=== PATIENT | female | born 1945 | race African-American/Black ===

== ENCOUNTER 2018-11-16 04:07 | Emergency (ER) | payer BC ==
[~2018-11-16] VITALS: Ht 157.5 cm; Wt 65.8 kg
[2018-11-16 04:15] VITALS: BP 122/66
--- NOTE | 2018-11-16 04:15 | NUR ---
ED Nurse Note: Pt arrived ED from home, c/o left chest pain today, 02/18. Pt is A/OX 4. Vital signs stable at this time, waitng for orders.
--- NOTE | 2018-11-16 04:42 | NUR ---
ED Nurse Note: Blood sample collected and sent to Lab.
--- NOTE | 2018-11-16 04:43 | NUR ---
ED Nurse Note: Pt was sent down for CT.
[2018-11-16 04:50] LABS: BASOPHILS % (AUTO) 0.9 % (0.0-2.0); EOSINOPHILS % (AUTO) 1.6 % (0.0-3.0); HEMOGLOBIN 12.1 G/DL (12.0-16.0); LYMPHOCYTES % (AUTO) 24.3 % (20.0-45.0); MEAN CORPUSCULAR VOLUME 83 FL (80-99); MONOCYTES % (AUTO) 7.1 % (1.0-10.0); PLATELET COUNT 316 K/UL (150-450); RED BLOOD COUNT 4.23 M/UL (4.20-5.40); RED CELL DISTRIBUTION WIDTH 11.7 % (11.6-14.8); WHITE BLOOD COUNT 8.3 K/UL (4.8-10.8)
[2018-11-16 04:58] LABS: ANION GAP 10 mmol/L (5-15); BLOOD UREA NITROGEN 21 mg/dL (7-18); CALCIUM 9.6 MG/DL (8.5-10.1); CARBON DIOXIDE 27 MMOL/L (21-32); CHLORIDE 104 MMOL/L (98-107); POTASSIUM 3.8 MMOL/L (3.5-5.1); SODIUM 141 MMOL/L (136-145)
[2018-11-16] MEDS ORDERED: Ketorolac 30mg Inj IV ONE (05:15)
--- NOTE | 2018-11-16 05:34 | Emergency Room Report ---
History of Present Illness General Chief Complaint: Pain Source: Patient Present Illness HPI Is a 72-year-old female with a history hypertension. She presents with chief complaint of left shoulder and left arm pain. Onset about 10 hours now. She also had some headache. Denies any fever chills. Denies any chest pain. No exertional component. No radiation. No relief with [id number] medication. Not worse with movement of her arm. She says she is under a lot of stress and worried that this may be causing the problem. Allergies: Coded Allergies: No Known Allergies (Unverified , 10/24/15) Patient History Past Medical History: see triage record, old chart reviewed, DM, HTN Past Surgical History: other Pertinent Family History: none Social History: Denies: smoking Now: No Immunizations: other Reviewed Nursing Documentation: PMH: Agreed; PSxH: Agreed Nursing Documentation-PMH Hx Hypertension: Yes Review of Systems Eye: Denies: eye pain, blurred vision ENT: Denies: ear pain, nose congestion, throat swelling Respiratory: Denies: cough, shortness of breath Cardiovascular: Denies: chest pain, palpitations Gastrointestinal: Denies: abdominal pain, diarrhea, nausea, vomiting Musculoskeletal: Reports: muscle pain; Denies: back pain, joint pain Skin: Denies: rash Neurological: Denies: headache, numbness Endocrine: Denies: increased thirst, increased urine Hematologic/Lymphatic: Denies: easy bruising All Other Systems: negative except mentioned in HPI Physical Exam Vital Signs Date Time Temp Pulse Resp B/P (MAP) Pulse Ox O2 Delivery O2 Flow Rate FiO2 11/16/18 04:09 98.1 74 16 125/74 97 Room Air vitals normal Sp02 EP Interpretation: reviewed, normal General Appearance: well appearing, no apparent distress, alert Head: normocephalic, atraumatic Eyes: bilateral eye PERRL, bilateral eye EOMI ENT: hearing grossly normal, normal pharynx Neck: full range of motion, supple, no meningismus Respiratory: chest non-tender, lungs clear, normal breath sounds Cardiovascular #1: regular rate, rhythm, no murmur Gastrointestinal: normal bowel sounds, non tender, no mass, no organomegaly, no bruit, non-distended Musculoskeletal: back normal, gait/station normal, normal range of motion Neurologic: alert, oriented x3 Psychiatric: mood/affect normal Skin: warm/dry Medical Decision Making Diagnostic Impression: Primary Impression: Arm pain, left ER Course Patient presents with left arm pain. No evidence of ACS, PE, dissection. Exam is not consistent with anginal equivalent pain. No evidence of TIA or CVA. Troponin and EKG are normal. Patient felt better now. We'll discharge home. Lab Results Impression labs normal EKG Diagnostic Results Rate: normal Rhythm: NSR ST Segments: no acute changes Rhythm Strip Diag. Results EP Interpretation: yes Rate: 65 Rhythm: NSR, no PVC's, no ectopy Chest X-Ray Diagnostic Results Chest X-Ray Diagnostic Results : Chest X-Ray Ordered: Yes # of Views/Limited/Complete: 1 View Indication: Chest Pain EP Interpretation: Yes Interpretation: no consolidation, no effusion, no pneumothorax, no acute cardiopulmonary disease Impression: No acute disease Electronically Signed by: Hayden Burnham MD Last Vital Signs Date Time Temp Pulse Resp B/P (MAP) Pulse Ox O2 Delivery O2 Flow Rate FiO2 11/16/18 04:15 98.1 65 16 122/66 97 Room Air Status: improved Disposition: HOME, SELF-CARE Condition: Stable Referrals: [facility],REFERRING (PCP) Additional Instructions: Follow-up with your doctor in 7 days or return if symptom worsen. Hayden Burnham MD Nov 16, 2018 05:34
[2018-11-16 05:42] VITALS: BP 123/64
--- NOTE | 2018-11-16 05:42 | NUR ---
ER DISCHARGE NOTE: Patient is cleared to be discharged per Dr. Burnham. CT of head done, EKG done. Pt is A/O x4 on room air with stable vital signs. Pt was given dc instructions and verbalize understanding. Pt ID band and iv site removed without complications. Pt is able to ambulate with steady gait, and took all belongings.
--- NOTE | 2018-11-16 09:52 | Diagnostic Imaging Report ---
Indications: Dizziness, altered mental status Technique: Spiral acquisitions obtained through the brain. Angled axial and coronal 5 x 5 mm slices were reconstructed. Total dose length product 1386.64 mGycm. CTDI vol(s) 70.38 mGy. Dose reduction achieved using automated exposure control Comparison: None. Findings: There is mild age-related enlargement of the ventricles and extra axial CSF spaces. No acute intrarenal hemorrhage or edema, mass effect, nor midline shift. Normal lauren-white differentiation. Intact calvarium. However, ill-defined osteosclerotic foci are seen in the left frontal and parietal calvarium Visualized orbits and sinuses are unremarkable. The mastoids are clear Impression: Mild age-related volume loss Negative for acute intrarenal bleed or mass effect Sclerotic left calvarial lesions. This raises possibility of metastatic or other process. Correlate with clinical history, recommend further evaluation with bone scan to assess metabolic activity if clinically indicated This agrees with the preliminary interpretation provided overnight by [facility]. The CT scanner at [facility] is accredited by the [employer] and the scans are performed using protocols designed to limit radiation exposure to as low as reasonably achievable to attain images of sufficient resolution adequate for diagnostic evaluation.
--- NOTE | 2018-11-16 13:11 | Cardiology Report ---
APPROVED REPORT EKG Measurement Heart [id number] Normal sinus rhythm Normal ECG
== END 2018-11-16 05:42 | disposition home or self-care (01) ==
LOC: EMR 04:46
DX: M79.602 Pain in left arm (principal); I10 Essential (primary) hypertension; E11.9 Type 2 diabetes mellitus without complications
CPT/HCPCS: 36415; 70450; 80048; 84484; 85025; 93005; 96374; 99284; J1885

== ENCOUNTER 2019-12-18 10:27 | Emergency (ER) | payer MEDICARE ==
[~2019-12-18] VITALS: Ht 157.5 cm; Wt 72.6 kg
--- NOTE | 2019-12-18 10:45 | NUR ---
ED Nurse Note: patient walked into ED from home c/o upper back pain and nausea since this morning. patient denies any vomiting or chest apin. patient was advised to come to ED for her symptoms. upon arrival to ED, patient denies any pain.
[2019-12-18 11:05] VITALS: BP 115/54
--- NOTE | 2019-12-18 11:50 | Emergency Room Report ---
History of Present Illness General Chief Complaint: Back Pain-No Injury Source: Patient Present Illness HPI Disclaimer: Please note that this report is being documented using DRAGON technology. This can lead to erroneous entry secondary to incorrect interpretation by the dictating instrument. HPI: 74-year-old female presented for upper back pain. Patient states she woke up with upper back pain this morning. About 6 out of 10. Aching in nature worse with movement. Pain has since resolved. She called her doctor's office this morning who was not in the clinic so she called her insurance hotline and the nurse on insurance hotline recommended ER evaluation. She states she was mildly nauseous but that has since resolved as well. No vomiting. No shortness of breath. No fever no coughing. She has a history of hypertension and high cholesterol. PMH: Hypertension and high cholesterol PSH: Reviewed Social Hx: Denies smoking drinking or illicit drug use Allergies: Coded Allergies: No Known Allergies (Unverified , 10/24/15) COVID-19 Screening Contact w/high risk pt: No Recent Travel to affected area: No Experienced COVID-19 symptoms?: No Nursing Documentation-PMH Past Medical History: No History, Except For Hx Hypertension: Yes Review of Systems All Other Systems: negative except mentioned in HPI Physical Exam Vital Signs Date Time Temp Pulse Resp B/P (MAP) Pulse Ox O2 Delivery O2 Flow Rate FiO2 12/18/19 10:38 98.1 53 20 114/71 (85) 95 Room Air Sp02 EP Interpretation: reviewed, normal General Appearance: well appearing, no apparent distress Head: normocephalic, atraumatic Eyes: bilateral eye PERRL, bilateral eye EOMI ENT: hearing grossly normal, moist mucus membranes Neck: full range of motion, supple Respiratory: lungs clear, normal breath sounds, no rhonchi, no respiratory distress, no retraction, no wheezing Cardiovascular #1: normal peripheral pulses, regular rate, rhythm, no murmur Gastrointestinal: non tender, soft, non-distended, no guarding Musculoskeletal: other - Upper back mildly tender to palpation bilaterally with no midline tenderness. Full range of motion of all extremities. Neurologic: alert, oriented x3, no focal defects Skin: normal color, warm/dry Medical Decision Making ER Course MDM: Patient presented with complaint of upper back pain. She Woke up with the pain this morning. She differential diagnosis: Clinical course Patient placed on stretcher. On monitoring tech. After initial history and physical I ordered labs, chest x-ray and CT Kristen of the chest. I ordered CT angios due to concern for possible dissection as patient's aorta appeared ectatic on chest x-ray. Labs - Laboratory Tests Test 12/18/19 11:40 White Blood Count 6.9 K/UL (4.8-10.8) Red Blood Count 4.69 M/UL (4.20-5.40) Hemoglobin 13.5 G/DL (12.0-16.0) Hematocrit 39.0 % (37.0-47.0) Mean Corpuscular Volume 83 FL (80-99) Mean Corpuscular Hemoglobin 28.8 PG (27.0-31.0) Mean Corpuscular Hemoglobin Concent 34.6 G/DL (32.0-36.0) Red Cell Distribution Width 10.7 % (11.6-14.8) L Platelet Count 322 K/UL (150-450) Mean Platelet Volume 5.7 FL (6.5-10.1) L Neutrophils (%) (Auto) 72.0 % (45.0-75.0) Lymphocytes (%) (Auto) 20.6 % (20.0-45.0) Monocytes (%) (Auto) 5.7 % (1.0-10.0) Eosinophils (%) (Auto) 1.0 % (0.0-3.0) Basophils (%) (Auto) 0.7 % (0.0-2.0) Sodium Level 139 MMOL/L (136-145) Potassium Level 4.0 MMOL/L (3.5-5.1) Chloride Level 101 MMOL/L (98-107) Carbon Dioxide Level 31 MMOL/L (21-32) Anion Gap 7 mmol/L (5-15) Blood Urea Nitrogen 16 mg/dL (7-18) Creatinine 0.9 MG/DL (0.55-1.30) Estimated Glomerular Filtration Rate > 60 mL/min (>60) Glucose Level 110 MG/DL (74-106) H Calcium Level 10.1 MG/DL (8.5-10.1) Total Bilirubin 0.7 MG/DL (0.2-1.0) Aspartate Amino Transferase (AST) 18 U/L (15-37) Alanine Aminotransferase (ALT) 18 U/L (12-78) Alkaline Phosphatase 131 U/L (46-116) H Troponin I 0.000 ng/mL (0.000-0.056) Total Protein 8.1 G/DL (6.4-8.2) Albumin 3.9 G/DL (3.4-5.0) Globulin 4.2 g/dL Albumin/Globulin Ratio 0.9 (1.0-2.7) L On reevaluation: Patient remained in no acute distress and nontoxic-appearing, pain-free Diagnosis -upper back pain resolved Stable and discharged to home Followup with PMD. Return to ED if symptoms recur or worsen differential diagnosis included but not limited to EKG Diagnostic Results Rate: bradycardiac Rhythm: NSR ST Segments: no acute changes Other Impression Sinus bradycardia, rate of 51 Last Vital Signs Date Time Temp Pulse Resp B/P (MAP) Pulse Ox O2 Delivery O2 Flow Rate FiO2 12/18/19 11:05 98.1 51 14 115/54 100 Room Air Status: improved Disposition: HOME, SELF-CARE Condition: Stable Referrals: [facility],REFERRING (PCP) Marty Hay M.D. Dec 18, 2019 11:50
[2019-12-18 12:06] LABS: ANION GAP 7 mmol/L (5-15); BLOOD UREA NITROGEN 16 mg/dL (7-18); CALCIUM 10.1 MG/DL (8.5-10.1); CARBON DIOXIDE 31 MMOL/L (21-32); CHLORIDE 101 MMOL/L (98-107); CREATININE 0.9 MG/DL (0.55-1.30); SODIUM 139 MMOL/L (136-145)
[2019-12-18 12:11] LABS: ALANINE AMINOTRANSFERASE 18 U/L (12-78); ALBUMIN 3.9 G/DL (3.4-5.0); ALBUMIN/GLOBULIN RATIO 0.9 (1.0-2.7); ALKALINE PHOSPHATASE 131 U/L (46-116); ASPARTATE AMINO TRANSFERASE 18 U/L (15-37); BILIRUBIN,TOTAL 0.7 MG/DL (0.2-1.0)
--- NOTE | 2019-12-18 12:13 | Diagnostic Imaging Report ---
Indication: Chest pain Technique: One view of the chest Comparison: none Findings: Inspiration is suboptimal. The lungs and pleural spaces are clear. The heart size is normal. The aorta is ectatic Impression: No acute process
[2019-12-18 12:16] LABS: BASOPHILS % (AUTO) 0.7 % (0.0-2.0); HEMOGLOBIN 13.5 G/DL (12.0-16.0); LYMPHOCYTES % (AUTO) 20.6 % (20.0-45.0); MEAN CORPUSCULAR VOLUME 83 FL (80-99); MONOCYTES % (AUTO) 5.7 % (1.0-10.0); PLATELET COUNT 322 K/UL (150-450); RED BLOOD COUNT 4.69 M/UL (4.20-5.40); RED CELL DISTRIBUTION WIDTH 10.7 % (11.6-14.8); WHITE BLOOD COUNT 6.9 K/UL (4.8-10.8)
[2019-12-18] MEDS ORDERED: Omnipaque 350 100ml vial INJ PRN (12:45)
--- NOTE | 2019-12-18 14:30 | NUR ---
ED Nurse Note: patient came back from CT chest in stable condition
[2019-12-18 14:51] VITALS: BP 131/65
--- NOTE | 2019-12-18 15:03 | Diagnostic Imaging Report ---
ndication: Chest pain and upper back pain Technique: IV administration nonionic contrast. Spiral acquisitions obtained from the lung bases to the lung apices. Multiplanar and 3-D reconstructions were generated. Total dose length product 211 mGycm. CTDIvol(s) one, 44, 6 mGy. Dose reduction achieved using automated exposure control Comparison: none Findings: There is no evidence of thoracic aortic aneurysm or dissection. The thoracic aorta is well-opacified. There is normal branching anatomy of the great neck vessels. The pulmonary arteries are well-opacified. No intraluminal filling defects or other findings to suggest acute pulmonary embolus are evident. No pulmonary arterial dilatation or isolated right ventricular dilatation is demonstrated. The lungs demonstrate some posterior dependent atelectatic changes. They're otherwise clear. The heart size is normal. No pericardial effusion. No mediastinal or hilar mass or adenopathy. The included portion of the thyroid is unremarkable. No axillary or chest wall mass or adenopathy demonstrated. There are degenerative changes of the thoracic spine Included upper abdominal anatomy demonstrates a few subcentimeter low-attenuation lesions in the dome of the liver. There are colonic diverticula Impression: No evidence of thoracic aortic aneurysm or dissection, pulmonary embolus, or other acute thoracic pathology. Incidental findings as noted, including subcentimeter probable hepatic cysts, colonic diverticulosis, dependent pulmonary atelectatic changes The CT scanner at [facility] is accredited by the [employer] and the scans are performed using protocols designed to limit radiation exposure to as low as reasonably achievable to attain images of sufficient resolution adequate for diagnostic evaluation.
[2019-12-18 15:35] VITALS: BP 136/69
--- NOTE | 2019-12-18 15:35 | NUR ---
ER DISCHARGE NOTE:Patient is cleared to be discharged per ERMD, pt is aox4, on room air, with stable vital signs. pt was given dc and prescription instructions, pt was able to verbalize understanding, pt id band and iv site removed without complications. pt is able to ambulate with steady gait. pt took all belongings.
== END 2019-12-18 15:35 | disposition home or self-care (01) ==
LOC: EMR 11:12
DX: M54.6 Pain in thoracic spine (principal); R00.1 Bradycardia, unspecified; E78.00 Pure hypercholesterolemia, unspecified; I10 Essential (primary) hypertension
CPT/HCPCS: 36415; 71045; 71275; 80053; 84484; 85025; 93005; 99284; Q9967